=== PATIENT | male | born 1950 | race Caucasian/White ===

== ENCOUNTER 2017-10-30 12:57 | Emergency (ER) | payer MEDICARE, BC ==
[~2017-10-30] VITALS: Ht 175.3 cm; Wt 77.1 kg
--- NOTE | 2017-10-30 13:13 | Emergency Room Report ---
History of Present Illness General Chief Complaint: Syncope Source: Patient, Family Member, EMS (LUIS WILSON M.D.) Present Illness HPI 67-year-old male brought in by EMS after allegedly syncope with head trauma [place] mall. Takes daily ASA but no other AC Patient was walking to meet partner for lunch Per partner, he fell once, tried to get up, fell again and hit head He is very nauseated, denies chest pain, SOB, abd pain, headache. Denies neck pain Denies trauma to anywhere else. 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 Was "thought to have had" an FL previously. While in the ER, patient briefly became unresponsive, diaphoretic, quickly aroused. Partner states he was treated outpatient for PNA 1 month ago - finished Abx. (LUIS WILSON M.D.) Allergies: Coded Allergies: No Known Allergies (Unverified , 10/30/17) Patient History Past Medical History: other - HLD Past Surgical History: none Pertinent Family History: none Social History: Denies: smoking, alcohol use, drug use Immunizations: UTD Reviewed Nursing Documentation: PMH: Agreed, PSxH: Agreed (LUIS WILSON M.D.) Nursing Documentation-PMH Past Medical History: No Stated History (LUIS WILSON M.D.) Review of Systems All Other Systems: negative except mentioned in HPI (LUIS WILSON M.D.) Physical Exam Vital Signs Date Time Temp Pulse Resp B/P (MAP) Pulse Ox O2 Delivery O2 Flow Rate FiO2 10/30/17 12:54 97.0 72 20 78/57 95 Room Air Sp02 EP Interpretation: reviewed, normal General Appearance: normal inspection, well appearing, no apparent distress, alert, GCS 15, non-toxic Head: normocephalic, atraumatic Eyes: bilateral eye PERRL, bilateral eye EOMI ENT: normal ENT inspection, hearing grossly normal, normal pharynx, no angioedema, normal voice, TMs + canals normal, uvula midline, moist mucus membranes Neck: normal inspection, full range of motion, supple, thyroid normal, no meningismus, no bony tend Respiratory: normal inspection, lungs clear, normal breath sounds, no rhonchi, no respiratory distress, no retraction, no accessory muscle use, no wheezing, speaking full sentences Cardiovascular #1: regular rate, rhythm, no edema, no JVD, normal capillary refill Gastrointestinal: normal inspection, normal bowel sounds, non tender, soft, no mass, no peritonitis, non-distended, no guarding, no hernia, no pulsatile mass Genitourinary: no CVA tenderness Musculoskeletal: normal inspection, back normal, normal range of motion, no calf tenderness, pelvis stable, Mariposa's Sign negative Neurologic: normal inspection, alert, oriented x3, responsive, 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 III-XII nml as tested, motor strength/tone normal, cerebellar normal, normal gait, speech normal Psychiatric: normal inspection, judgement/insight normal, mood/affect normal, no suicidal/homicidal ideation, no delusions Skin: normal inspection, normal color, no rash, other - cool, clammy Lymphatic: normal inspection, no adenopathy (LUIS WILSON M.D.) Medical Decision Making Diagnostic Impression: Primary Impression: Syncope Qualified Codes: R55 - Syncope and collapse Additional Impression: Traumatic hematoma of forehead Qualified Codes: S00.83XA - Contusion of other part of head, initial encounter ER Course 67-year-old male with likely vasovagal syncope likely secondary to dehydration Patient marginally hypotensive in the ER, diaphoretic nauseous ECG here shows poor R-wave progression but no other ischemia. Otherwise normal rate and rhythm. 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 Ramsay and signed out to me for final disposition. Patient laboratory workup was negative head CT was normal x-rays was also negative. Given the severity of the patient's presentation I felt this is a highly complex patient. This patient required extensive workup. Patient require admission for further monitoring. Patient however declined to be admitted. Patient understood the risks of not being admitted to the hospital including cardiac arrest or significant disability. Patient was capable making decisions. Therefore patient was discharged AGAINST MEDICAL ADVICE in the care of his . Labs Test 10/30/17 14:14 White Blood Count 8.5 K/UL (4.8-10.8) Red Blood Count 4.64 M/UL (4.70-6.10) Hemoglobin 13.7 G/DL (14.2-18.0) Hematocrit 41.4 % (42.0-52.0) Mean Corpuscular Volume 89 FL (80-99) Mean Corpuscular Hemoglobin 29.6 PG (27.0-31.0) Mean Corpuscular Hemoglobin Concent 33.1 G/DL (32.0-36.0) Red Cell Distribution Width 11.1 % (11.6-14.8) Platelet Count 199 K/UL (150-450) Mean Platelet Volume 7.6 FL (6.5-10.1) Neutrophils (%) (Auto) 74.5 % (45.0-75.0) Lymphocytes (%) (Auto) 18.9 % (20.0-45.0) Monocytes (%) (Auto) 4.7 % (1.0-10.0) Eosinophils (%) (Auto) 0.9 % (0.0-3.0) Basophils (%) (Auto) 1.0 % (0.0-2.0) Sodium Level 142 MMOL/L (136-145) Potassium Level 4.1 MMOL/L (3.5-5.1) Chloride Level 108 MMOL/L (98-107) Carbon Dioxide Level 24 MMOL/L (21-32) Anion Gap 10 mmol/L (5-15) Blood Urea Nitrogen 23 mg/dL (7-18) Creatinine 1.4 MG/DL (0.55-1.30) Estimat Glomerular Filtration Rate 50.5 mL/min (>60) Glucose Level 107 MG/DL (74-106) Calcium Level 7.6 MG/DL (8.5-10.1) Total Bilirubin 0.6 MG/DL (0.2-1.0) Aspartate Amino Transf (AST/SGOT) 17 U/L (15-37) Alanine Aminotransferase (ALT/SGPT) 21 U/L (12-78) Alkaline Phosphatase 50 U/L (46-116) Total Creatine Kinase 83 U/L (26-308) Creatine Kinase MB 0.5 NG/ML (0.0-3.6) Creatine Kinase MB Relative Index 0.6 Troponin I 0.013 ng/mL (0.000-0.056) Total Protein 7.2 G/DL (6.4-8.2) Albumin 3.4 G/DL (3.4-5.0) Globulin 3.8 g/dL Albumin/Globulin Ratio 0.9 (1.0-2.7) (SHERICE LAWRENCE M.D.) EKG Diagnostic Results Rate: normal Rhythm: NSR ST Segments: no acute changes ASA given to the pt in ED: No (LUIS WILSON M.D.) Rate: normal Rhythm: NSR ST Segments: no acute changes (SHERICE LAWRENCE M.D.) Rhythm Strip Diag. Results EP Interpretation: yes Rate: 64 Rhythm: NSR, no PVC's, no ectopy (LUIS WILSON M.D.) EP Interpretation: yes Rate: 60s Rhythm: NSR, no PVC's, no ectopy (SHERICE LAWRENCE M.D.) Chest X-Ray Diagnostic Results Chest X-Ray Diagnostic Results : Chest X-Ray Ordered: Yes # of Views/Limited/Complete: 1 View Indication: Chest Pain EP Interpretation: No Impression: No acute disease (SHERICE LAWRENCE M.D.) CT/MRI/US Diagnostic Results CT/MRI/US Diagnostic Results : Imaging Test Ordered: head ct neg (SHERICE LAWRENCE M.D.) Last Vital Signs Date Time Temp Pulse Resp B/P (MAP) Pulse Ox O2 Delivery O2 Flow Rate FiO2 10/30/17 12:54 97.0 72 20 78/57 95 Room Air (LUIS WILSON M.D.) Status: improved (SHERICE LAWRENCE M.D.) Disposition: AGAINST MEDICAL ADVICE Condition: Stable Scripts Azithromycin* (ZITHROMAX*) 250 Mg Tablet 250 MG ORAL DAILY, #6 TAB 0 Refills Take two tablets by mouth today, then take one tablet by mouth daily for four days Prov: SHERICE LAWRENCE M.D. 10/30/17 Albuterol Sulfate* (ALBUTEROL SULFATE MDI*) 8.5 Gm Hfa.aer.ad 2 PUFF INH Q4H Y for cough/wheezing, #1 EA 0 Refills Prov: SHERICE LAWRENCE M.D. 10/30/17 LUIS WILSON M.D. Oct 30, 2017 13:13 SHERICE LAWRENCE M.D. Oct 30, 2017 22:06
--- NOTE | 2017-10-30 14:01 | Diagnostic Imaging Report ---
Indication: Chest pain Technique: One view of the chest Comparison: none Findings: Lungs and pleural spaces are clear. The heart size is upper limits normal. There are degenerative changes of the thoracic spine Impression: No acute process
--- NOTE | 2017-10-30 14:15 | Diagnostic Imaging Report ---
Indications: Syncope with head trauma Technique: Spiral acquisitions obtained through the brain. Angled axial and coronal 5 x 5 mm slices were reconstructed. Total dose length product 1428.87 mGycm. CTDI vol(s) 70.38 mGy. Dose reduction achieved using automated exposure control Comparison: None. Findings: There is age-related enlargement of the extra-axial CSF spaces, predominantly frontal. There is minimal age-related enlargement of the ventricles. Normal powers-white differentiation. No acute intracranial hemorrhage or edema, mass effect, nor midline shift. There is a small left posterior frontal scalp hematoma. No underlying calvarial abnormality. There is ethmoid sinus disease Impression: Mild age-related changes Left superficial small scalp hematoma Negative for acute intracranial bleed or mass effect The CT scanner at [facility] is accredited by the [employer] and the scans are performed using protocols designed to limit radiation exposure to as low as reasonably achievable to attain images of sufficient resolution adequate for diagnostic evaluation.
[2017-10-30 14:40] LABS: EOSINOPHILS % (AUTO) 0.9 % (0.0-3.0); HEMATOCRIT 41.4 % (42.0-52.0); HEMOGLOBIN 13.7 G/DL (14.2-18.0); LYMPHOCYTES % (AUTO) 18.9 % (20.0-45.0); MEAN CORPUSCULAR VOLUME 89 FL (80-99); MONOCYTES % (AUTO) 4.7 % (1.0-10.0); NEUTROPHILS % (AUTO) 74.5 % (45.0-75.0); PLATELET COUNT 199 K/UL (150-450); RED BLOOD COUNT 4.64 M/UL (4.70-6.10); RED CELL DISTRIBUTION WIDTH 11.1 % (11.6-14.8); WHITE BLOOD COUNT 8.5 K/UL (4.8-10.8)
[2017-10-30] MEDS ORDERED: ROSUVASTATIN CA20 MG ORAL (14:47)
[2017-10-30] MEDS ORDERED: ASPIR 8181 MG ORAL (14:47)
[2017-10-30 14:51] LABS: ANION GAP 10 mmol/L (5-15); BLOOD UREA NITROGEN 23 mg/dL (7-18); CALCIUM 7.6 MG/DL (8.5-10.1); CARBON DIOXIDE 24 MMOL/L (21-32); CHLORIDE 108 MMOL/L (98-107); CREATININE 1.4 MG/DL (0.55-1.30); POTASSIUM 4.1 MMOL/L (3.5-5.1); SODIUM 142 MMOL/L (136-145)
[2017-10-30] MEDS ORDERED: LORazepam Inj 2mg/ml 1ml IV PRN (15:00)
[2017-10-30] MEDS ORDERED: Ketorolac 30mg Inj IV PRN (15:00)
[2017-10-30] MEDS ORDERED: Enalaprilat 2.5mg/2ml Inj IV PRN (15:00)
[2017-10-30] MEDS ORDERED: dilTIAZem HCl 25mg/5ml Inj IV PRN (15:00)
[2017-10-30] MEDS ORDERED: Nitroglycerin Subl 0.4mg tab SL PRN (15:00)
[2017-10-30] MEDS ORDERED: Mylanta II UD 30ml ORAL PRN (15:00)
[2017-10-30] MEDS ORDERED: Albuterol/Ipratropium 3ml neb HHN PRN (15:00)
[2017-10-30] MEDS ORDERED: Miralax 17gm pkt ORAL PRN ×2 (15:00)
[2017-10-30] MEDS ORDERED: Morphine Sulfate 2mg/ml Inj IVP PRN (15:00)
[2017-10-30 15:05] LABS: ALANINE AMINOTRANSFERASE 21 U/L (12-78); ALBUMIN 3.4 G/DL (3.4-5.0); ALBUMIN/GLOBULIN RATIO 0.9 (1.0-2.7); ALKALINE PHOSPHATASE 50 U/L (46-116); ASPARTATE AMINO TRANSFERASE 17 U/L (15-37); BILIRUBIN,TOTAL 0.6 MG/DL (0.2-1.0); CKMB 0.5 NG/ML (0.0-3.6); CREATINE KINASE 83 U/L (26-308)
[2017-10-30 15:07] VITALS: BP 116/65
[2017-10-30] MEDS ORDERED: AZITHROMYCIN250 MG ORAL (16:09)
[2017-10-30] MEDS ORDERED: ALBUTEROL SULF8.5 GM INH (16:09)
[2017-10-30 16:19] VITALS: BP 115/68
[2017-10-30 16:20] VITALS: BP 115/68
[2017-10-30] MEDS ORDERED: Heparin 5000 units/ml inj SUBQ SCH (21:00)
[2017-10-31] MEDS ORDERED: Aspirin Baby 81mg ORAL SCH (09:00)
--- NOTE | 2017-11-07 16:01 | Cardiology Report ---
APPROVED REPORT EKG Measurement Heart [id number] Normal sinus rhythm Cannot rule out Anterior infarct, age undetermined Abnormal ECG
== END 2017-10-30 16:24 | disposition left against medical advice (07) ==
LOC: EDBD 12:57 → EMR 13:16 → 2E 13:25 → UNDOADMIN 13:25 → EDBEDREQ 15:10 → CANBEDREQ 16:26
DX: S00.93XA Contusion of unspecified part of head, initial encounter (principal); E86.0 Dehydration; R55 Syncope and collapse; E78.5 Hyperlipidemia, unspecified; Z79.82 Long term (current) use of aspirin; W18.39XA Other fall on same level, initial encounter; Y92.59 Other trade areas as the place of occurrence of the external cause
CPT/HCPCS: 36415; 70450; 71045; 80053; 82550; 82553; 82962; 84484; 85025; 93005; 99284; J2405